=== PATIENT | female | born 1960 | race African-American/Black ===

== ENCOUNTER 2020-09-06 13:01 | Emergency (ER) | payer OTHER ==
[~2020-09-06] VITALS: Ht 157.5 cm; Wt 77.1 kg
[2020-09-06 13:49] LABS: HEMATOCRIT 35.7 % (37.0-47.0); HEMOGLOBIN 12.3 gm/dL (12.0-15.0); MCH 30.5 pg (26.0-34.0); MCHC 34.5 g/dL (28.0-37.0); MCV 88.2 fL (80.0-100.0); PLATELET COUNT 398 thou/uL (150-400); RBC 4.05 mil/uL (4.20-5.00); RDW 13.6 % (10.5-14.5)
[2020-09-06 13:54] LABS: CALCIUM 9.6 mg/dL (8.5-10.1); CREATININE 0.9 mg/dL (0.6-1.0)
[2020-09-06 14:00] LABS: TOTAL BILIRUBIN 0.4 mg/dL (0.2-1.0); TOTAL PROTEIN 7.8 g/dL (6.4-8.2)
[2020-09-06] MEDS ORDERED: MEDROLDOSEPACK PO (14:27)
[2020-09-06 14:32] LABS: ABSOLUTE NEUTROPHILS 6.1 thou/uL (1.4-8.2); PLATELET ESTIMATE NORMAL
[2020-09-06] MEDS ORDERED: ADVIL200 M1 PO (14:43)
[2020-09-06] MEDS ORDERED: TOPROL XL50 MG (14:44)
[2020-09-06] MEDS ORDERED: NEURONTIN100 MG PO (14:44)
[2020-09-06] MEDS ORDERED: CYMBALTA60 MG PO (14:44)
[2020-09-06] MEDS ORDERED: CHLORTHALIDONE25 MG PO (14:44)
[2020-09-06] MEDS ORDERED: TIZANIDINE HCL4 M1 PO (14:45)
[2020-09-06] MEDS ORDERED: POTASSIUM CHLO10 ME1 PO (14:46)
[2020-09-06] MEDS ORDERED: MINIVELLE1 EAC1 PO (14:48)
[2020-09-06] MEDS ORDERED: LASIX 40 MG TAB40 MG PO (14:48)
[2020-09-06] MEDS ORDERED: PERCOCET 5-3251 EACH PO ×2 (14:49→15:02)
[2020-09-06] MEDS ORDERED: ASA81BEC PO (14:49)
[2020-09-06] MEDS ORDERED: MIRALAX119 GM PO (14:50)
[2020-09-06 14:53] VITALS: BP 142/80
== END 2020-09-06 14:40 | disposition home or self-care (01) ==
LOC: ER 13:01
PROVIDERS: Emergency Medicine
DX: M79.604 Pain in right leg (principal); Z79.1 Long term (current) use of non-steroidal anti-inflammatories (NSAID); Z79.82 Long term (current) use of aspirin; Z79.899 Other long term (current) drug therapy; Z87.891 Personal history of nicotine dependence; Z88.0 Allergy status to penicillin